=== PATIENT | female | born 1970 | race Caucasian/White ===

== ENCOUNTER 2021-08-19 13:42 | Emergency (ER) | payer OTHER ==
[2021-08-19] MEDS ORDERED: BACTRIM DS TAB1 EACH PO (18:00)
[2021-08-19] MEDS ORDERED: CEPHALEXIN500 M1 PO (18:00)
[2021-08-19] MEDS ORDERED: MOBIC15 MG PO (18:00)
== END 2021-08-19 18:15 | disposition home or self-care (01) ==
LOC: ER1 13:42
DX: J34.0 Abscess, furuncle and carbuncle of nose (principal); F17.200 Nicotine dependence, unspecified, uncomplicated; Z90.710 Acquired absence of both cervix and uterus
CPT/HCPCS: 70487; 99283; Q9967

== ENCOUNTER 2021-10-02 13:22 | Emergency (ER) | payer OTHER ==
[~2021-10-02 13:22] MED LIST: BACTRIM DS TAB1 EACH PO; CEPHALEXIN500 M1 PO; MOBIC15 MG PO
[2021-10-02 14:38] LABS: RED BLOOD COUNT 4.56 M/UL (4.00-5.10); WHITE BLOOD COUNT 11.6 K/UL (4.5-11.0)
[2021-10-02 16:27] LABS: BUN/CREATININE RATIO 16 (0-10)
[2021-10-02] MEDS ORDERED: MOBIC7.5 MG PO (17:23)
[2021-10-02] MEDS ORDERED: BLUE-EMU LIDOC1 EACH TP (17:23)
[2021-10-02] MEDS ORDERED: CYCLOBENZAPRINE10 MG PO (17:23)
== END 2021-10-02 17:45 | disposition home or self-care (01) ==
LOC: ER1 13:22
PROVIDERS: Student in an Organized Health Care Education/Training Program
DX: M54.12 Radiculopathy, cervical region (principal); M25.561 Pain in right knee; M25.562 Pain in left knee; E07.9 Disorder of thyroid, unspecified; F17.290 Nicotine dependence, other tobacco product, uncomplicated
CPT/HCPCS: 72125; 73562; 80053; 82550; 82553; 84484; 84550; 85025; 85379; 96374; 96375; 99284; J1885; J2270

== ENCOUNTER 2021-10-23 16:56 | Emergency (ER) | payer OTHER ==
[~2021-10-23 16:56] MED LIST changes: +BLUE-EMU LIDOC1 EACH TP; +CYCLOBENZAPRINE10 MG PO; +MOBIC7.5 MG PO
[2021-10-24] MEDS ORDERED: FLOXIN 0.3% OTIC5 ML AD (14:01)
== END 2021-10-23 17:32 | disposition left against medical advice (07) ==
LOC: ER1 16:56
DX: Z53.21 Procedure and treatment not carried out due to patient leaving prior to being seen by health care provider (principal)

== ENCOUNTER 2021-10-24 11:55 | Emergency (ER) | payer OTHER ==
[2021-10-24] MEDS ORDERED: FLOXIN 0.3% OTIC5 ML AD (14:01)
== END 2021-10-24 14:16 | disposition home or self-care (01) ==
LOC: ER1 11:55
DX: M25.561 Pain in right knee (principal); M25.562 Pain in left knee; H60.92 Unspecified otitis externa, left ear; E11.9 Type 2 diabetes mellitus without complications; Z90.49 Acquired absence of other specified parts of digestive tract; F17.200 Nicotine dependence, unspecified, uncomplicated
CPT/HCPCS: 96372; 99283; J1885

== ENCOUNTER 2022-03-12 12:27 | Emergency (ER) | payer OTHER ==
[~2022-03-12 12:27] MED LIST changes: +FLOXIN 0.3% OTIC5 ML AD
[2022-03-12 15:10] LABS: RED BLOOD COUNT 3.85 M/UL (4.00-5.10); WHITE BLOOD COUNT 16.1 K/UL (4.5-11.0)
[2022-03-12] MEDS ORDERED: AZITHROMYCIN500 MG PO (18:34)
[2022-03-12] MEDS ORDERED: LASIX40 MG PO (18:34)
[2022-03-12] MEDS ORDERED: K-TAB ER20 MEQ PO (18:34)
[2022-03-12] MEDS ORDERED: CEFDINIR300 MG PO (18:34)
== END 2022-03-12 18:37 | disposition home or self-care (01) ==
LOC: ER1 12:27
PROVIDERS: Emergency Medicine
DX: J18.9 Pneumonia, unspecified organism (principal); J02.0 Streptococcal pharyngitis; R60.0 Localized edema; E03.9 Hypothyroidism, unspecified; K21.9 Gastro-esophageal reflux disease without esophagitis; F17.200 Nicotine dependence, unspecified, uncomplicated; Z90.49 Acquired absence of other specified parts of digestive tract; Z90.710 Acquired absence of both cervix and uterus; Z79.899 Other long term (current) drug therapy; Z20.822 Contact with and (suspected) exposure to COVID-19
CPT/HCPCS: 71045; 80053; 82550; 82553; 83880; 84439; 84443; 84484; 85025; 87081; 87880; 99285; U0002